=== PATIENT | female | born 2000 | race Caucasian/White ===

== ENCOUNTER 2020-05-31 00:39 | Emergency (ER) | payer OTHER ==
[~2020-05-31] VITALS: Ht 154.9 cm; Wt 72.1 kg
[2020-05-31 00:47] VITALS: BP 127/79
--- NOTE | 2020-05-31 00:49 | NUR ---
TO LOBBY A/W BED AMBULATORY
[2020-05-31] MEDS ORDERED: LIDOCAINE/EPI 1% 1:100000 20 ML VIAL INJ ONE (00:50)
--- NOTE | 2020-05-31 00:52 | NUR ---
SEEN AND EXAMINED BY MARILUZ WITH ORDERS AND CARRIED OUT
--- NOTE | 2020-05-31 01:30 | NUR ---
I&D Procedure done by Dr HANSON. amt of bleeding noted. Wound packed with . DSD applied. Pt TOLERATED THE procedure WELL. Wound care discussed w/ patient.
[2020-05-31 02:00] VITALS: BP 127/79
--- NOTE | 2020-05-31 02:00 | NUR ---
Patient discharged with v/s stable. Written and verbal after care instructions given and explained. Patient alert, oriented and verbalized understanding of instructions. Ambulatory with steady gait. All questions addressed prior to discharge. ID band removed. Patient advised to follow up with PMD. Rx of BACTRIM, KEFLEX given. Patient educated on indication of medication including possible reaction and side effects. Opportunity to ask questions provided and answered.
== END 2020-05-31 02:00 | disposition home or self-care (01) ==
LOC: MED 00:39
DX: L02.412 Cutaneous abscess of left axilla (principal); L03.112 Cellulitis of left axilla
CPT/HCPCS: 10060; 99283; J2001

== ENCOUNTER 2021-02-11 06:05 | Emergency (ER) | payer OTHER ==
[~2021-02-11] VITALS: Ht 160 cm; Wt 72.6 kg
[2021-02-11 06:14] VITALS: BP 121/71
--- NOTE | 2021-02-11 06:18 | NUR ---
PATIENT STATES UNABLE TO GIVE UA AT THIS TIME. PATIENT AMBUALTORY TO LOBBY.
--- NOTE | 2021-02-11 06:35 | NUR ---
Dr. Hutchinson examining patient.
[2021-02-11] MEDS ORDERED: ONDANSETRON 4 MG ODT PO ONE (06:40)
[2021-02-11] MEDS ORDERED: DICYCLOMINE HCL LIQUID 20 MG, ALUMINUM HYD/MAG/SIMETHICONE 30 ML, LIDOCAINE VISCOUS 2% ... PO ONE ×3 (06:40)
[2021-02-11] MEDS ORDERED: ALUMINUM HYD/MAG/SIMETHICONE 30 ML UDC ONE (06:45)
[2021-02-11] MEDS ORDERED: ONDA8TAB87 PO (06:45)
[2021-02-11] MEDS ORDERED: IBUP-2213 PO (06:45)
[2021-02-11] MEDS ORDERED: DICYCLOMINE HCL LIQUID 10 MG/5 ML UDC ONE (06:45)
--- NOTE | 2021-02-11 06:57 | NUR ---
PATIENT STATES UNABLE TO GIVE UA SAMPLE AT THIS TIME.
[2021-02-11] MEDS ORDERED: NACL 0.9% 1,000 ML IV ONE (07:40)
[2021-02-11] MEDS ORDERED: KETOROLAC 30 MG/ML VIAL IVP ONE (07:40)
--- NOTE | 2021-02-11 08:05 | NUR ---
PT AMBULATED TO BED 11
--- NOTE | 2021-02-11 08:06 | NUR ---
PATIENT BIB SELF FOR C/O GENERALZED ABDOMINAL PAIN STARTING 3 HOURS AGO, PAIN 8/10. PATIENT ADMITS TO N/D, NO EPISODES OF VOMITING.
[2021-02-11 09:18] VITALS: BP 121/71
--- NOTE | 2021-02-11 09:21 | NUR ---
Patient discharged with v/s stable. Written and verbal after care instructions given and explained. Patient alert, oriented and verbalized understanding of instructions. Ambulatory with steady gait. All questions addressed prior to discharge. ID band removed. Patient advised to follow up with PMD. Rx of IBUPROFEN, ZOFRAN given. Patient educated on indication of medication including possible reaction and side effects. Opportunity to ask questions provided and answered.
== END 2021-02-11 09:21 | disposition home or self-care (01) ==
LOC: MED 06:05
DX: R10.9 Unspecified abdominal pain (principal); R11.0 Nausea; R68.83 Chills (without fever)
CPT/HCPCS: 81002; 81025; 96361; 96374; 99283; J1885; J7030; Q0162